=== PATIENT | male | born 1975 ===

== ENCOUNTER 2018-03-30 12:49 | Outpatient (CLI) | payer OTHER ==
[2018-03-30] MEDS ORDERED: GADOPENTETATE DIMEGLUMINE 5 ML VIAL IVP ONE ×2 (13:11→13:54)
[2018-03-30] MEDS ORDERED: IOTHALAMATE MEGLUMINE 50 ML VIAL ONE (13:11)
[2018-03-30] MEDS ORDERED: BUFFERED LIDOCAINE 10 ML SYRINGE IU ONE (13:54)
[2018-03-30] MEDS ORDERED: IOTHALAMATE MEGLUMINE 50 ML VIAL IVP ONE (13:54)
--- NOTE | 2018-03-30 17:05 | MRI Report ---
EXAM: LEFT SHOULDER MRI ARTHROGRAM WITH CONTRAST. EXAM DATE: 03/30/2018 02:51 PM. CLINICAL HISTORY: Left shoulder pain. COMPARISON: None. TECHNIQUE: Multiplanar, multisequence T1-weighted and fluid-sensitive sequences of the shoulder after an arthrographic injection of dilute gadolinium, dictated under a separate exam. Other: None. FINDINGS: Acromioclavicular Region: The acromion is type I. The acromioclavicular joint is unremarkable. The co racoacromial and coracoclavicular ligaments are intact. There is no contrast or fluid in the subacrom ial/subdeltoid bursa. Glenohumeral Region: No subluxation. No loose bodies. Focal grade 2-3 chondromalacia at the anteroinf erior aspect of the glenoid. The glenohumeral ligaments and joint capsule are unremarkable. Bone Marrow: No fracture, marrow edema or bone lesions. Labrum: There is a probable sub-labral foramen variant at the anterosuperior aspect of the labrum. Th ere is a tear at the anterior inferior and inferior aspects of the labrum. There is a tiny paralabral cyst adjacent to the inferior aspect of the labrum and glenoid. Biceps Tendon: Partial-thickness tear within the proximal to mid aspects of the long head biceps ten don. Musculature/Rotator Cuff: The subscapularis, supraspinatus, infraspinatus, and teres minor tendons ar e intact. No edema or fatty atrophy. Other: The subcutaneous tissues are unremarkable. IMPRESSION: 1. Tear at the anterior-inferior and inferior aspects of the labrum. Tiny paralabral cyst adjacent to the inferior aspect of the labrum and glenoid. 2. Focal grade 2-3 chondromalacia at the anteroinferior aspect of the glenoid. 3. No rotator cuff tear. 4. Partial-thickness tear within the proximal to mid aspects of the long head biceps tendon. [facility]CULOSKE[facility] SECTION Referring Provider Line: [phone] SITE ID: [id number]
--- NOTE | 2018-03-30 17:12 | XRAY Report ---
FLUOROSCOPICALLY GUIDED LEFT SHOULDER INJECTION FOR MR ARTHROGRAM: 03/30/2018 CLINICAL INDICATION: Pain. FINDINGS: Following obtaining informed consent, the patient's left shoulder was prepped and draped in the usual sterile fashion. The skin and soft tissues were anesthetized with lidocaine. A spinal needle was inserted into the left glenohumeral joint, and following confirmation of needle positioning, a combination of iodinated contrast, dilute gadolinium, and lidocaine was injected intraarticularly. The patient tolerated the procedure well. No immediate complications. Spot image reveals no evidence of contrast extravasation. IMPRESSION: SUCCESSFUL LEFT SHOULDER INJECTION FOR MR ARTHROGRAM. FLUOROSCOPY TIME: 23 seconds; 1 spot image obtained. TD: 03/30/2018 14:06
== END 2018-03-30 12:50 | disposition home or self-care (01) ==
LOC: DI 12:49
PROVIDERS: ATTEND Student in an Organized Health Care Education/Training Program
DX: M25.512 Pain in left shoulder (principal); S43.492A Other sprain of left shoulder joint, initial encounter; S46.112A Strain of muscle, fascia and tendon of long head of biceps, left arm, initial encounter; M94.212 Chondromalacia, left shoulder
CPT/HCPCS: 23350; 73222; 77002; Q9961

== ENCOUNTER 2018-04-02 08:54 | Outpatient (CLI) | payer OTHER | END 2018-04-02 08:55 | disposition home or self-care (01) | LOC: SC 08:54 | PROVIDERS: ATTEND Internal Medicine Pulmonary Disease | DX: G47.33 Obstructive sleep apnea (adult) (pediatric) (principal) | CPT/HCPCS: 99203; 99212 ==

== ENCOUNTER 2018-06-05 09:03 | Outpatient (CLI) | payer OTHER | END 2018-06-05 09:04 | disposition home or self-care (01) | LOC: SC 09:03 | PROVIDERS: ATTEND Internal Medicine Pulmonary Disease | DX: G47.33 Obstructive sleep apnea (adult) (pediatric) (principal) | CPT/HCPCS: 99212; 99213 ==

== ENCOUNTER 2019-07-09 13:40 | Outpatient (CLI) | payer OTHER ==
[2019-07-09] MEDS ORDERED: BUFFERED LIDOCAINE 10 ML SYRINGE ONE (14:23)
[2019-07-09] MEDS ORDERED: GADOPENTETATE DIMEGLUMINE 5 ML VIAL IVP ONE (14:24)
[2019-07-09] MEDS ORDERED: IOTHALAMATE MEGLUMINE 50 ML VIAL ONE (14:24)
--- NOTE | 2019-07-09 16:33 | XRAY Report ---
Reason: BURSITIS OF LEFT SHOULDER Procedure Date: 07/09/2019 Accession Number: [id number] / [id number] Procedure: FL - Arthrogram Needle Placement CPT Code: FULL RESULT: EXAM: LEFT SHOULDER ARTHROGRAPHIC INJECTION WITH FLUOROSCOPIC GUIDANCE EXAM DATE: 07/09/2019 03:34 PM. CLINICAL HISTORY: BURSITIS OF LEFT SHOULDER. Recurrent pain with history of surgery COMPARISON: ARTHROGRAM SHOULDER LT 03/30/2018 1:30 PM. TECHNIQUE: The risks, benefits, and alternatives of the procedure were discussed with the patient. All questions were answered. Written and verbal consent were obtained. The left glenohumeral joint was marked under fluoroscopy and prepped and draped in a sterile manner. Local anesthesia was performed with 1% lidocaine. A 22-gauge needle was then inserted into the glenohumeral joint. 10 mL of a solution containing 25% 1% lidocaine, 25% iodinated contrast, and a 1:200 dilution of gadolinium contrast in sterile saline was then injected. The needle was removed without immediate complication. Other: None. Fluoroscopy Time: 0.1 minute. Number of Images: 2. FINDINGS: Bones and joints: No fracture or subluxation. Injection: Fluoroscopic images demonstrate needle placement and contrast in the glenohumeral joint. No contrast extravasation outside of the glenohumeral joint. IMPRESSION: Successful fluoroscopically guided arthrographic injection of the left shoulder. [facility]
--- NOTE | 2019-07-10 15:44 | MRI Report ---
Reason: BURSITIS OF LEFT SHOULDER Procedure Date: 07/09/2019 Accession Number: [id number] / [id number] Procedure: MRI - Arthrogram Shoulder LT CPT Code: FULL RESULT: EXAM: LEFT SHOULDER MRI ARTHROGRAM WITH CONTRAST EXAM DATE: 07/09/2019 03:56 PM. CLINICAL HISTORY: Bursitis of left shoulder. COMPARISON: ARTHROGRAM SHOULDER LT 03/30/2018 1:30 PM. TECHNIQUE: Multiplanar, multisequence T1-weighted and fluid-sensitive sequences of the shoulder after an arthrographic injection of dilute gadolinium, dictated under a separate exam. Other: None. FINDINGS: Acromioclavicular Region: The acromion is type II. Status post interval Yessica procedure since comparison. AC joint is somewhat broadened. The coracoacromial and coracoclavicular ligaments are intact. There is no contrast or fluid in the subacromial/subdeltoid bursa. Glenohumeral Region: No subluxation. No loose bodies. There is global articular cartilage thinning on both sides the glenohumeral joint. The glenohumeral ligaments and joint capsule are unremarkable. Bone Marrow: No fracture, marrow edema or bone lesions. Labrum: Some minimal undermining of the anterior and superior aspect of the labrum. Thought to be normal recesses rather than labral tears. Biceps Tendon: Interval tear and distal retraction of the long head of biceps tendon. Musculature/Rotator Cuff: There is a small amount of thickening of the supraspinatus and infraspinatus portion of the rotator cuff. Subscapularis and teres minor appear unremarkable. No edema or fatty atrophy. Other: The subcutaneous tissues are unremarkable. IMPRESSION: 1. Type II unipartite undersurface osseous acromion shape. Patient is status post Yessica procedure. 2. Mild tendinopathy of the supraspinatus and infraspinatus portion of the rotator cuff. 3. Interval tear and distal retraction of the long head of the biceps tendon. [facility]
== END 2019-07-09 13:41 | disposition home or self-care (01) ==
LOC: DI 13:40
PROVIDERS: ATTEND Orthopaedic Surgery
DX: S46.112A Strain of muscle, fascia and tendon of long head of biceps, left arm, initial encounter (principal); M67.912 Unspecified disorder of synovium and tendon, left shoulder
CPT/HCPCS: 23350; 73222; 77002; Q9961

== ENCOUNTER 2019-07-26 07:17 | Outpatient (CLI) | payer OTHER ==
--- NOTE | 2019-07-28 08:03 | Ultrasound Report ---
Reason: ABN FINDINGS ON DIAGNOSTIC IMAGING Procedure Date: 07/26/2019 Accession Number: [id number] / [id number] Procedure: US - Abdomen Complete CPT Code: FULL RESULT: EXAM: ABDOMEN ULTRASOUND EXAM DATE: 07/26/2019 12:35 PM. CLINICAL HISTORY: Abnormal findings on diagnostic imaging. COMPARISON: None. TECHNIQUE: Real-time scanning was performed with static images obtained. FINDINGS: Liver: Focal area of hypoechoic parenchyma near the gallbladder most compatible with focal fat sparing. Liver parenchyma is heterogeneous and markedly hyperechoic. No discrete liver masses or intrahepatic bile duct dilation. However, evaluation for masses is limited secondary to the echogenicity. Right liver measures 20.5 cm. Main portal vein flow: Hepatopetal. Gallbladder: Normal. No stones, wall thickening, or sonographic Scales's sign. Biliary System: Common bile duct measures 4 mm. No intrahepatic or extrahepatic ductal dilatation. Pancreas: Distal pancreas not well-seen. Limitations secondary to bowel gas. Remaining pancreas unremarkable. Kidneys: Right: 11.8 cm longitudinally. Normal. No contour-deforming mass, stones, or hydronephrosis. Left: 13 cm longitudinally. Normal. No contour-deforming mass, stones, or hydronephrosis. Spleen: 12.9 x 3.4 x 13.2 cm. Normal in size and echotexture. Volume measures 303 cc. Aorta and Inferior Vena Cava: Unremarkable. Other: None. IMPRESSION: 1. No liver mass or intrahepatic dilation.Markedly echogenic fatty liver. Hepatomegaly. 2. Normal gallbladder and common bile duct. 3. Normal pancreas. [facility]
== END 2019-07-26 07:18 | disposition home or self-care (01) ==
LOC: DI 07:17
PROVIDERS: ATTEND Internal Medicine
DX: K76.0 Fatty (change of) liver, not elsewhere classified (principal)
CPT/HCPCS: 76700

== ENCOUNTER 2019-08-02 10:44 | Day surgery (SDC) | payer OTHER ==
[~2019-08-02 10:44] MED LIST: BUPIVACAINE 0.25% PF 30 ML VIAL ONE; EPINEPHrine 1 MG/ML AMP ONE
[2019-08-02] MEDS ORDERED: MIDAZOLAM 2 MG/2 ML VIAL IVP ONE (10:45)
[2019-08-02] MEDS ORDERED: GLYCOPYRROLATE 1 MG/5 ML VIAL IVP ONE (10:45)
[2019-08-02] MEDS ORDERED: ONDANSETRON 4 MG/2 ML VIAL IVP ONE (10:45)
[2019-08-02] MEDS ORDERED: ACETAMINOPHEN 1,000 MG/100 ML 100 ML IV ONE (10:45)
[2019-08-02] MEDS ORDERED: LIDOCAINE-MPF 2% 5 ML VIAL IM ONE (10:45)
[2019-08-02] MEDS ORDERED: NEOSTIGMINE 1 MG/1 ML 10 ML MDV IVP ONE (10:45)
[2019-08-02] MEDS ORDERED: ROCURONIUM 50 MG/5 ML VIAL IVP ONE (10:45)
[2019-08-02] MEDS ORDERED: KETOROLAC 30 MG/ML VIAL IVP ONE (10:45)
[2019-08-02] MEDS ORDERED: PROPOFOL 200 MG/20 ML VIAL IVP ONE ×2 (10:45)
[2019-08-02] MEDS ORDERED: DEXAMETHASONE 4 MG/ML VIAL IVP ONE (10:45)
[2019-08-02] MEDS ORDERED: fentaNYL 100 MCG/2 ML VIAL IVP ONE (10:45)
[2019-08-02] MEDS ORDERED: LACTATED RINGERS 1,000 ML IV ONE ×2 (10:52→15:09)
--- NOTE | 2019-08-02 11:30 | ANESTHESIA ---
Pre-Anesthesia VS, & Labs - Diagnosis L Rotator cuff bursitis - Procedure L shoulder scope, SAD Vital Signs: Temp Pulse Resp BP Pulse Ox 36.3 C L 66 18 139/96 H 95 08/02/19 10:52 08/02/19 10:52 08/02/19 10:52 08/02/19 10:52 08/02/19 10:52 Height 6 ft 1 in Weight (kg) 117.93 kg - NPO >8 hours Home Medications and Allergies Home Medications: Ambulatory Orders Varenicline Tartrate [Chantix] 1 mg PO 07/30/19 raNITIdine [Zantac] 150 mg PO DAILY PRN 07/30/19 Varenicline Tartrate [Chantix] 1 mg PO 07/30/19 raNITIdine [Zantac] 150 mg PO DAILY PRN 07/30/19 Allergies/Adverse Reactions: Allergies Allergy/AdvReac Type Severity Reaction Status Date / Time No Known Drug Allergies Allergy Verified 07/30/19 14:36 Anes History & Medical History - Anesthetic History Anesthesia Complications: reports: No previous complications Family history of Anesthesia Complications: Denies Family history of Malignant Hyperthermia: Denies - Medical History Cardiovascular: reports: High cholesterol Pulmonary: reports: None Gastrointestinal: reports: GERD (well controlled with Zantac), Other Musculoskeletal: reports: Other Endocrine/Autoimmune: reports: None Skin: reports: None Smoking Status: Former smoker Psychosocial: reports: No issues indicated - Surgical History General: Colonoscopy, EGD Orthopedic: Arthroscopic surgery (RCR, labrum, DCE) Exam General: Alert, Oriented x3, Cooperative Dental: WNL Mouth Opening: Greater than 4 Fingerbreadths Neck Mobility: Normal Mallampati classification: I Thyromental Distance: greater than 6 cm Respiratory: Lungs clear, Normal breath sounds, No respiratory distress Cardiovascular: Regular rate Neurological: Normal speech Mental/Cognitive Status: Alert/Oriented X3, Normal for patient Cognitive Status: Within normal limits Plan Anesthesia Type: General, Supraclavicular Block (possible post-op per MD) Consent for Procedure(s) Verified and Reviewed: Yes Code Status: Attempt Resuscitation ASA classification: 2-Mild systemic disease Is this case an emergency?: No
[2019-08-02] MEDS ORDERED: cefTRIAXone 2 GM VIAL ONE (11:47)
[2019-08-02] MEDS ORDERED: BUPIVACAINE 0.25% PF 30 ML VIAL SUBQ ONE ×3 (13:51→15:15)
[2019-08-02] MEDS ORDERED: EPINEPHrine 1 MG/ML AMP IR ONE (13:51)
[2019-08-02] MEDS ORDERED: ONDANSETRON 4 MG/2 ML VIAL IVP PRN (15:25)
[2019-08-02] MEDS ORDERED: oxyCODONE 5 MG TABLET PO PRN (15:25)
--- NOTE | 2019-08-02 15:33 | OPERATIVE REPORT ---
Operative Report - Other Other Information/Narrative: Date of Surgery: 02 August 2019 Pre-Op Diagnosis: Left shoulder subacromial impingement Procedure: Left glenohumeral joint diagnostic arthroscopy with limited debridement. Left shoulder subacromial decompression with acromioplasty Postop Diagnosis: Same Primary Surgeon: Jung Cortes Secondary Surgeon: Deondre Sy Complications: None EBL: 20 IMPLANTS: None POSTOPERATIVE PLAN: 0-6 weeks-Passive and active range of motion without limitations. 6-12 weeks-Gradually increase strengthening focusing on rotator cuff and scapular stabilizers. EXAMINATION UNDER ANESTHESIA: ROM: Full. Popping sensation is felt just anterior to the border of the acromi on when coming out of external rotation. This is worse when in an abducted position Anterior load and shift: Stable Posterior load and shift: Stable Inferior sulcus: Stable ARTHROSCOPIC FINDINGS: Rotator interval: Intact Biceps tendon & SLAP: Prior tenodesis. Degenerative tear Subscapularis: Intact Rotator Cuff: Intact, no tears HAGL: Normal Labrum: Prior labral repair was visualized. The portion of the labrum that had been put onto the glenoid face to cover the glad lesion did not heal. It was not significantly unstable however. A limited debridement was performed Glenoid Cartilage: Grade 1-2 changes Humeral Head Cartilage: Posterior humeral head had full-thickness cartilage loss. The remainder had grade 1 softening INDICATION FOR SURGERY: 43-year-old male had left shoulder arthroscopy with 3:00 to 9:00 labral repair, open biceps tenodesis, and distal clavicle excision 1 year ago. He had persistent popping sensation anterolaterally just off the edge of the acromion. This responded to a steroid injection but the pain came back. Physical therapy no longer helped. Nonoperative managment failed to resolve symptoms. The risks, benefits, and alternatives were discussed. Risks included pain, bleeding, infection, damage to nearby structures, lack of symptom relief, implant complications, stiffness, need for further surgeries, DVT, PE, stroke, and even . The patient signed a written consent form. PROCEDURE IN DETAIL: The patient was met in the preoperative holding on the day of the procedure. Operative extremity was signed. Consent was verified. The patient desired to proceed. Regional anesthesia was obtained in the preoperative area. The patient was brought to the operating room and surrendered to anesthesia. Once general anesthesia was obtained the patient was placed in the beach chair position. A soft kidney pad was placed. The head was secured with the neck in a neutral position. The shoulder and arm were prepped and draped in the standard fashion. A surgical timeout was held to confirm the patient identity, procedure, procedure, laterality, allergies, images, and antibiotics. All were in agreement we proceeded. A standard diagnostic arthroscopy was performed utilizing posterior and anterosuperior portals. The anterosuperior portal was created under direct visualization and localized with a spinal needle. The 7 mm cannula was placed anteriorly. The findings of the diagnostic arthroscopy can be found above. A limited debridement of a portion of the anterior labrum was performed and the superior labrum. No further intra-articular work was indicated. I then remove the camera from inside the joint and atraumatically placed into the subacromial space. A shaver was brought in from the front. A subacromial debridement was performed utilizing a shaver and the electrocautery device. All of the bursa was removed. The bursa was inflamed and abundant. I focused my bursal excision anteriorly and laterally. The bursectomy was performed all the way to the AC joint as visualized with a spinal needle. The CA ligament was visualized and excised. I then used a 4 mm bur to shave the anterior and lateral acromion I s ystematically removed bone until I was satisfied. The arm was then externally rotated fully and the clicking sensation had been relieved. He was then placed into a fully abducted position and externally rotated the clicking sensation could not be felt. There did persist a very small, faint clicking sensation. I had taken his much of the acromion as I felt safe to do so I decided to stop at that point. The portal sites were then closed with 3-0 Monocryl buried. The incisions for open procedures were closed with 2-0 Vicryl in the dermis and a running 3-0 Monocryl in the skin. Mastisol and Steri-Strips were applied. A sterile dressing and a sling was applied. The patient was awakened and transferred to the recovery room.
[2019-08-02] MEDS: HYDROmorphone 1 MG/ML CARPUJECT ONE ×3 (15:37→15:48)
[2019-08-02] MEDS: HYDROmorphone 0.5 MG/0.5 ML SYRINGE ONE ×2 (15:59→16:05)
[2019-08-02] MEDS ORDERED: ONDANSETRON 4 MG/2 ML VIAL ONE (16:13)
[2019-08-02] MEDS: fentaNYL 100 MCG/2 ML VIAL ONE ×2 (16:17→16:25)
[2019-08-02] MEDS ORDERED: oxyCODONE 5 MG TABLET ONE (16:58)
[2019-08-02 17:21] VITALS: BP 112/79
== END 2019-08-02 10:45 | disposition home or self-care (01) ==
LOC: SDS 10:44
PROVIDERS: ATTEND Orthopaedic Surgery
PROC: 0RNK4ZZ Release Left Shoulder Joint, Percutaneous Endoscopic Approach (ICD-10-PCS; principal; 2019-08-02 12:45)
DX: M75.42 Impingement syndrome of left shoulder (principal); S43.432A Superior glenoid labrum lesion of left shoulder, initial encounter; M75.52 Bursitis of left shoulder; M24.112 Other articular cartilage disorders, left shoulder; G47.30 Sleep apnea, unspecified; Z87.891 Personal history of nicotine dependence; Z87.39 Personal history of other diseases of the musculoskeletal system and connective tissue
CPT/HCPCS: 29823; A9270; J0131; J1170; J7120

== ENCOUNTER 2019-10-12 14:04 | Outpatient (CLI) | payer OTHER ==
--- NOTE | 2019-10-13 06:54 | MRI Report ---
Reason: CERVICALGIA Procedure Date: 10/12/2019 Accession Number: [id number] / [id number] Procedure: MRI - Cervical Spine W/O CPT Code: Final Report FULL RESULT: EXAM: MRI CERVICAL SPINE WITHOUT CONTRAST EXAM DATE: 10/12/2019 03:23 PM. CLINICAL HISTORY: Cervicalgia, left upper extremity pain. COMPARISONS: None. TECHNIQUE: Multiplanar, multisequence T1-weighted and fluid-sensitive sequences of the cervical spine without contrast. Other: None. FINDINGS: Neurologic Structures: The visualized posterior fossa structures are unremarkable. No signal abnormality in the visualized spinal cord. Alignment: Retrolisthesis at C5-C6 and C6-C7 measured 2-3 mm. Bone Marrow: Moderate type I Modic endplate changes are present at C5-C6. Interspace Levels/Facets: C1-C2: Unremarkable. C2-C3: Unremarkable. C3-C4: There is mild left foraminal narrowing due to uncovertebral hypertrophy. The spinal canal and right foramen are patent. C4-C5: There is mild right foraminal narrowing due to uncovertebral hypertrophy. The spinal canal and left foramen are patent. C5-C6: A posterior disk osteophyte complex results in mild spinal canal stenosis. There is kinking and flattening of the ventral spinal cord but without definite spinal cord impingement. There is moderate bilateral foraminal narrowing due to uncovertebral hypertrophy, worse on the left. C6-C7: A central protrusion results in mild spinal canal stenosis without impingement of the spinal cord. The foramina are patent. C7-T1: Unremarkable. Musculature: Normal. No edema or fatty atrophy. Other: The paravertebral and prevertebral soft tissues are normal. IMPRESSION: 1. Normal cervical spinal cord signal intensity. 2. Moderate type I Modic endplate changes are present at C5-C6. 3. Mild degenerative changes are present in the mid and lower cervical spine but there is no high-grade spinal canal stenosis. 4. Degenerative disk changes at C4-C5 cause flattening and kinking of the spinal cord but without cord impingement. 5. Moderate bilateral foraminal narrowing is present at C5-C6. [facility]
== END 2019-10-12 14:05 | disposition home or self-care (01) ==
LOC: DI 14:04
DX: M50.321 Other cervical disc degeneration at C4-C5 level (principal); M48.02 Spinal stenosis, cervical region
CPT/HCPCS: 72141

== ENCOUNTER 2019-12-17 09:04 | Outpatient (CLI) | payer OTHER ==
--- NOTE | 2019-12-17 12:59 | SLEEP CARE CONSULTATION ---
Information from patient questionnaire entered by Kristy Hernandez. I have reviewed and concur with the information entered by Kristy Hernandez. This document represents the service I personally performed and the decisions made by me, Sharon Phillips MD, [facility]. History of Present Illness Previous diagnosis: Very Severe, Obstructive Sleep Apnea-Hypopnea Syndrome AHI: 60.2 Reason for follow up: annual (last seen 2018) Equipment type: CPAP Equipment obtained from: [facility] Mask style: Full face HPI additional information: HPI: Mr. Bradley returned today for follow up of nasal CPAP therapy. He was diagnosed to have severe obstructive sleep apnea-hypopnea syndrome. The patient went to [facility] for the equipment but is now getting supplies from [employer]. He wears a Respironics AmaraView full face mask. He reports using the device most nights. The compliance report shows usage 154 nights out of the past 180 nights, averaging 4.8 hours a night. The > 4 hour compliance rate for the past 180 days is 56%. He complained of no particular problem with the device such as soreness on the face, dry nose, epistaxis, nasal congestion or headache. He thinks that the pressure of 12 cmH2O is comfortable. On the CPAP therapy he notices improvement in his sleep quality, and that he wakes up feeling fresher in the morning and more awake/alert during the day. The [place] Sleepiness Scale score 10. His notices rare snore through the CPAP. The average residual AHI is 1.6; and air leak, 5.5 L/min. CPAP Compliance Data - Data Reviewed with Patient Average duration of nightly device use: 6.1 Compliance rate %: 74 (90 days) Current pressure setting (cmH2O): 12 Humidity settin Average residual AHI: 1.6 Subjective Patient concerns: reports: dry mouth, nose, throat, other (power outage) Initial [place] Sleepiness Scale score: 8 Current [place] Sleepiness Scale score: 10 Allergies and Home Medications Drug allergies reviewed: Yes (NKDA) Home medication list reviewed: Yes (none) Review of Systems Review of systems same as previous: Yes Physical Exam Weight: 263 lb Impression and Plan IMPRESSION: 1. Obstructive Sleep Apnea-Hypopnea Syndrome, severe, with the patient continuing to do well on nasal CPAP therapy. He has decent compliance and significant clinical improvement. The current pressure appears effective and comfortable. Overall, she is very satisfied with treatment and plans to continue with it long-term. No adjustment is necessary today. PLAN: 1. Continue with nasal CPAP therapy set at 12 cmH2O. 2. Try to lose weight 3. Try ResMed F30 and Respironics DreamWear full face mask. 4. Return in one year for follow up or earlier if there is any problem with the treatment. I spent 100% of this visit face to face with the patient with greater than 50% of this was spent time counseling the patient and coordination of care.
== END 2019-12-17 09:05 | disposition home or self-care (01) ==
LOC: SC 09:04
PROVIDERS: ATTEND Internal Medicine Pulmonary Disease
DX: G47.33 Obstructive sleep apnea (adult) (pediatric) (principal)
CPT/HCPCS: 99212; 99213

== ENCOUNTER 2020-06-26 14:44 | Outpatient (CLI) | payer OTHER ==
--- NOTE | 2020-06-26 15:38 | MRI Report ---
PROCEDURE: Lumbar Spine W/O INDICATIONS: LOW BACK PAIN TECHNIQUE: Noncontrast sagittal T1 spin echo and T2 fast echo, sagittal STIR, axial T1 and T2 fast spin echo thr ough the lumbar spine. In cases with scoliosis, additional coronal T2 fast spin echo may be performe d. COMPARISON: None. FINDINGS: Image quality: Motion artifact is noted. Alignment and Curvature: There is normal bony alignment. Bone Marrow: Marrow is of normal overall signal. No acute vertebral body compression fractures. Spinal Cord: Conus medullaris terminates at the L1 level. Visualized cord demonstrates normal signa l and size. Paraspinous Soft Tissues: No paravertebral masses. T12-L1: Normal in appearance. L1-L2: Normal in appearance. L2-L3: Normal in appearance. L3-L4: No significant abnormality is seen. L4-L5: The disc height and disc signal are relatively well-preserved. Mild to moderate disc bulge i s seen. An annular fissure can be seen posteriorly and on the left, as on series 401 image 3 and on s eries 701 image 12. Mild facet hypertrophy is seen. There is mild to moderate right-sided and moder ate left-sided neuroforaminal narrowing seen. Mild central canal narrowing is seen. L5-S1: The disc height and disc signal are well preserved. No significant disc bulge is seen. Mild to moderate facet hypertrophy is seen. Mild bilateral neural foraminal narrowing is seen. Minimal c entral canal narrowing is seen. IMPRESSION: Premature lower lumbar spine degenerative changes are seen, which are most prominent at the L4-L5 level. Reviewed by: Rowdy Yen MD on 06/26/2020 2:37 PM RON[facility] Approved by: Rowdy Yen MD on 06/26/2020 2:37 PM RONAL Station ID: [id number]
== END 2020-06-26 14:45 | disposition home or self-care (01) ==
LOC: DI 14:44
PROVIDERS: ATTEND Student in an Organized Health Care Education/Training Program
DX: M51.36 Other intervertebral disc degeneration, lumbar region (principal); M51.37 Other intervertebral disc degeneration, lumbosacral region; M47.816 Spondylosis without myelopathy or radiculopathy, lumbar region; M47.817 Spondylosis without myelopathy or radiculopathy, lumbosacral region; M48.061 Spinal stenosis, lumbar region without neurogenic claudication; M48.07 Spinal stenosis, lumbosacral region
CPT/HCPCS: 72148

== ENCOUNTER 2020-12-04 09:21 | Outpatient (CLI) | payer OTHER ==
--- NOTE | 2020-12-04 09:46 | SLEEP CARE CONSULTATION ---
Information from patient questionnaire entered by Kristy Hernandez. I have reviewed and concur with the information entered by Kristy Hernandez. This document represents the service I personally performed and the decisions made by , Frances Rodriguez ARNP. History of Present Illness Service Date and Time: 12/04/2020 09 Previous diagnosis: Very Severe, Obstructive Sleep Apnea-Hypopnea Syndrome AHI: 60.2 (in 2017) Reason for follow up: annual (last seen 11/2019) Equipment type: CPAP Equipment obtained from: [facility] (getting supplies as needed) Mask style: Full face Backup mask available: Yes (old mask) Last cushion change: 2-3 weeks Prior sleep studies: Yes Year and Where: [address] [place] [address] Sleep Lab Type of Sleep Study: Polysomnography HPI additional information: MAGGI GUSTAFSON was diagnosed to have very severe, AHI 60.2, obstructive sleep apnea-hypopnea syndrome and returned today for CPAP therapy annual follow-up. CPAP Compliance Data - Data Reviewed with Patient Average duration of nightly device use: 6 hr 50 min Compliance rate %: 79 (180 days) Current pressure setting (cmH2O): 12 Humidity settin Average residual AHI: 1.8 Subjective Missed days of use due to: reports: travel Patient concerns: reports: air blowing in eyes (when mask needs changing, not sealing well), mask leak noise, dry mouth, nose, throat (all the time; not really using the humidifier). denies: aerophagia, mask discomfort, condensation in mask/hose, nasal congestion, epistaxis, other Observed to snore while using device: No Current pressure setting perceived as: comfortable On therapy, patient: reports: sleeping better, awakening more refreshed, being more awake and alert during the day, more rested overall. denies: drowsiness while driving Initial [place] Sleepiness Scale score: 8 (in 2018) Current [place] Sleepiness Scale score: 14 Allergies and Home Medications Home medication list reviewed: Yes (no changes) Review of Systems Review of systems same as previous: Yes (no changes) Physical Exam Heart Rate: 73 O2 Saturation: 98 Height: 6 ft 1 in Weight: 275 lb Body Mass Index: 36.3 BMI Classification: Obese Impression and Plan 1. Obstructive Sleep Apnea-Hypopnea Syndrome, very severe, with fair treatment compliance and good apnea control. On CPAP therapy, the patient has better sleep quality and is more rested overall. He regularly has mouth dryness but he has not been using the humidifier option. He states when he started using it he would try to turn up the humidity, then got condensation and would have to have the heated hose up so high the air was very warm. He did not like this and stopped using it. I reviewed with the patient that chronic oral dryness can affect dental health and advised to follow up with dentist as needed. In addition, there are oral dryness products that can be used to reduce dryness such as Biotene products, Dry mouth rinse and Xylomelts. Patient to discuss best option with dentist. Patient's apnea severity and rationale for treatment to reduce apnea, improve sleep quality and reduce cardiovascular and cerebrovascular events was reviewed. I also reviewed the benefit of consistent device use of CPAP for RLS. He is retiring from the [employer] and moving this year. He was encouraged to find a sleep provider in his new area before his annual appointment time comes around. He voiced understanding and agreement with plan. * Continue autoCPAP pressure at 12 cmH2O * Notify me if snoring with mask or feeling that the pressure is too much or too little * Attempt to lose weight * Call this office if any problems using CPAP * Return for follow up in 1 year, or sooner if concerns arise Counseling Topics: Spare mask, Weight loss health impact Visit Type: In Office Time Spent with Patient (minutes): 20 Provider Statement: I spent 100% of the Face to Face Visit with the patient with greater than 50% spent counseling the patient and coordination of care.
== END 2020-12-04 09:22 | disposition home or self-care (01) ==
LOC: SC 09:21
PROVIDERS: ATTEND Nurse Practitioner Family
DX: G47.33 Obstructive sleep apnea (adult) (pediatric) (principal); E66.9 Obesity, unspecified; Z68.36 Body mass index [BMI] 36.0-36.9, adult
CPT/HCPCS: 99212; 99213

== ENCOUNTER 2023-09-02 07:33 | Outpatient (CLI) | payer OTHER ==
--- NOTE | 2023-09-04 19:20 | MRI Report ---
PROCEDURE: LUMBAR SPINE WO INDICATIONS: CHRONIC LOW BACK PAIN TECHNIQUE: Noncontrast sagittal T1 spin echo and T2 fast echo, sagittal STIR, axial T1 and T2 fast spin echo thr ough the lumbar spine. In cases with scoliosis, additional coronal T2 fast spin echo may be performe d. COMPARISON: Lumbar spine MRI without contrast dated 06/24/2020. FINDINGS: Image quality: Excellent. Alignment and Curvature: There is normal bony alignment. Bone Marrow: Marrow is of normal overall signal. No acute vertebral body compression fractures. Spinal Cord: Conus medullaris terminates at the L1-L2 level. Visualized cord demonstrates normal si gnal and size. Paraspinous Soft Tissues: No paravertebral masses. T12-L1: Normal in appearance. L1-L2: Normal in appearance. L2-L3: Normal in appearance. L3-L4: Mild facet hypertrophy. No canal stenosis or foraminal stenosis. L4-L5: Bilateral facet hypertrophy. No significant central canal stenosis. Mild to moderate right f oraminal narrowing and mild left foraminal narrowing. L5-S1: Minimal disc bulge. Bilateral facet hypertrophy. No canal stenosis or significant foraminal s tenosis. IMPRESSION: 1. Multilevel facet arthropathy. 2. No significant canal stenosis. No foraminal nerve root impingement. Reviewed by: Markus Kumar MD on 09/04/2023 7:18 PM PST Approved by: Markus Kumar MD on 09/04/2023 7:18 PM PST Station ID: [id number]
== END 2023-09-02 07:34 | disposition home or self-care (01) ==
LOC: DI 07:33
PROVIDERS: ATTEND Family Medicine
DX: M47.816 Spondylosis without myelopathy or radiculopathy, lumbar region (principal); M47.817 Spondylosis without myelopathy or radiculopathy, lumbosacral region